=== PATIENT | male | born 1975 | race Caucasian/White ===

== ENCOUNTER 2017-07-25 21:12 | Emergency (ER) | payer OTHER ==
[2017-07-25] MEDS: Lidocaine 2% 20ml Vial IP ONE (21:20)
[2017-07-25 21:33] VITALS: BP 136/68
--- NOTE | 2017-07-25 21:36 | ED Physician Documentation ---
General Adult - HISTORIAN Historian: patient - HPI Stated Complaint: Facial Laceration Chief Complaint: General Adult Onset: minutes Timing: still present Severity: mild Further Comments: yes (Pt is a 42 yo male with a facial laceration, a superficial c-shaped laceration lateral to his R eyebrow. Pt was holding an e- cigarette when he tried to swat an insect on the side of his face. Tetanus is utd.) - ROS CONST: no problems EYES/ENT: none CVS/RESP: none GI/: none MS/SKIN/LYMPH: other (facial laceration) - PAST HX Past History: other (ortho surgery) Allergies/Adverse Reactions: Allergies Allergy/AdvReac Type Severity Reaction Status Date / Time No Known Drug Allergies Allergy Unverified 07/25/17 21:47 Home Medications: Ambulatory Orders Medication Instructions Recorded NK [NK] 07/25/17 - SOCIAL HX Smoking History: cigarettes (e-cigarettes) - FAMILY HX Family History: No - VITAL SIGNS Vital Signs: Vital Signs Temp Pulse Resp BP Pulse Ox 97.8 F 88 18 136/68 98 07/25/17 21:15 07/25/17 21:15 07/25/17 21:15 07/25/17 21:15 07/25/17 21:15 - REVIEWED ASSESSMENTS Nursing Assessment Reviewed: Yes Vitals Reviewed: Yes Procedures Wound Location: head (c-shaped flap laceration lateral to R eyebrow) Wound Length: 2.5 cm Wound's Depth, Shape: superficial Wound Explored: clean Irrigated w/ Saline (ccs): 10 Betadine Prep?: No (hybiclens) Anesthesia: 1% Lidocaine Volume of Anesthetic: 3 cc Wound Debrided: minimal Wound Repaired With: sutures Suture Size/Type: 5:0, nylon Number of Sutures: 4 Progress - Progress Progress: Triple abx applied in ER. D/c instructions: Apply topical antibiotic to sutured area twice daily for 5 days. Follow up with primary provider in 5 to 7 days for suture removal of 4 sutures. To limit scarring, us high SPF sunblock on affected area for up to one year. General Adult Physical Exam - PHYSICAL EXAM GENERAL APPEARANCE: no distress EENT: eye inspection normal NECK: normal inspection, supple RESPIRATORY: no resp distress, chest non-tender, breath sounds normal CVS: reg rate & rhythm, heart sounds normal BACK: normal inspection SKIN: other (c-shaped, superficial, flap lacertion, lateral to R eyebrow, 2.5 cm.) EXTREMITIES: non-tender, normal range of motion, no evidence of injury NEURO: oriented X3, motor nml, sensation nml Discharge Clincal Impression: Facial laceration Qualifiers: Encounter type: initial encounter Qualified Code(s): S01.81XA - Laceration without foreign body of other part of head, initial encounter Referrals: Primary Doctor,No [Primary Care Provider] - Condition: Good Disposition: 01 HOME, SELF-CARE Decision to Admit: NO Decision Time: 21:38
== END 2017-07-25 21:50 | disposition home or self-care (01) ==
LOC: ED 21:12
DX: S01.81XA Laceration without foreign body of other part of head, initial encounter (principal); X58.XXXA Exposure to other specified factors, initial encounter; Y93.9 Activity, unspecified; Y92.9 Unspecified place or not applicable; Y99.9 Unspecified external cause status
CPT/HCPCS: 12001

== ENCOUNTER 2018-05-10 18:39 | Emergency (ER) | payer OTHER ==
[2018-05-10] MEDS: Lidocaine 1% 5ml 10 MG/ML VIAL IJ ONE (19:09)
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
[2018-05-10 19:51] VITALS: BP 126/79
== END 2018-05-10 19:48 | disposition home or self-care (01) ==
LOC: ED 18:39
DX: S01.511A Laceration without foreign body of lip, initial encounter (principal); X58.XXXA Exposure to other specified factors, initial encounter; Y93.89 Activity, other specified; Y92.009 Unspecified place in unspecified non-institutional (private) residence as the place of occurrence of the external cause
CPT/HCPCS: 12011; 99282